=== PATIENT | male | born 1980 | race Native Hawaiian/Other Pacific Islander ===

== ENCOUNTER 2016-12-28 13:30 | Emergency (ER) | payer OTHER ==
[~2016-12-28] VITALS: Ht 182.9 cm; Wt 79.4 kg
[2016-12-28 13:38] VITALS: TEMP 98.4
[2016-12-28 15:49] VITALS: BP 127/74
== END 2016-12-28 15:49 | disposition home or self-care (01) ==
LOC: ED 13:30
PROC: 0HQGXZZ Repair Left Hand Skin, External Approach (ICD-10-PCS; principal; 2016-12-28)
PROC: 2W3KX1Z Immobilization of Left Finger using Splint (ICD-10-PCS; 2016-12-28)
DX: S61.221A Laceration with foreign body of left index finger without damage to nail, initial encounter (principal); W29.8XXA Contact with other powered hand tools and household machinery, initial encounter; Y92.098 Other place in other non-institutional residence as the place of occurrence of the external cause
CPT/HCPCS: 90471; 90715; 96372; 99283; J0696